=== PATIENT | female | born 1940 | race Caucasian/White ===

== ENCOUNTER 2017-11-03 11:41 | Outpatient (CLI) | payer MEDICARE, SELFPAY ==
[2017-11-03 13:10] LABS: Cholesterol 186 mg/dL (50-200); HDL Cholesterol 70 mg/dL (40-60); LDL CHOLESTEROL 105 mg/dL (<100); Triglyceride 79 mg/dL (30-150)
== END 2017-11-03 12:01 ==
PROVIDERS: PCP Family Medicine; Visit Provider Family Medicine
DX: E11.9 Type 2 diabetes mellitus without complications (principal)
CPT/HCPCS: 36415; 80061; 83721

== ENCOUNTER → 2017-11-08 10:20 | Outpatient (BNVA) | payer MEDICARE, OTHER, SELFPAY | PROVIDERS: PCP Family Medicine; Visit Provider Psychiatry & Neurology Neurology | DX: G25.0 Essential tremor (principal) | CPT/HCPCS: 99213 ==

== ENCOUNTER 2018-05-17 10:52 | Outpatient (CLI) | payer MEDICARE, OTHER, SELFPAY ==
[2018-05-17 12:18] LABS: Hemoglobin A1C 9.2 % (4.5-6.2)
== END 2018-05-17 11:12 ==
PROVIDERS: PCP Family Medicine; Visit Provider Family Medicine
DX: E11.9 Type 2 diabetes mellitus without complications (principal)
CPT/HCPCS: 36415; 83036

== ENCOUNTER 2018-09-16 15:43 | Outpatient (CLI) | payer MEDICARE, OTHER, SELFPAY ==
[2018-09-16 20:37] LABS: Hemoglobin A1C 7.4 % (4.5-6.2)
== END 2018-09-16 16:03 ==
PROVIDERS: PCP Family Medicine; Visit Provider Family Medicine
DX: E11.9 Type 2 diabetes mellitus without complications (principal)
CPT/HCPCS: 36415; 83036

== ENCOUNTER → 2018-11-09 08:34 | Outpatient (BNVA) | payer MEDICARE, OTHER, SELFPAY | PROVIDERS: PCP Family Medicine; Visit Provider Psychiatry & Neurology Neurology | DX: G25.0 Essential tremor (principal); R20.0 Anesthesia of skin; E11.40 Type 2 diabetes mellitus with diabetic neuropathy, unspecified; Z79.84 Long term (current) use of oral hypoglycemic drugs; I10 Essential (primary) hypertension | CPT/HCPCS: 99214 ==

== ENCOUNTER 2018-11-21 01:07 | Outpatient (CLI) | payer MEDICARE, SELFPAY ==
[2018-11-21 12:29] LABS: Hemoglobin A1C 7.8 % (4.5-6.2)
== END 2018-11-21 01:27 ==
PROVIDERS: PCP Family Medicine; Visit Provider Family Medicine
DX: E11.9 Type 2 diabetes mellitus without complications (principal)
CPT/HCPCS: 36415; 83036

== ENCOUNTER 2019-03-27 11:56 | Outpatient (CLI) | payer MEDICARE, OTHER, SELFPAY ==
[2019-03-27 13:35] LABS: ALT 22 U/L (14-59); AST 12 U/L (15-37); Albumin 3.5 g/dL (3.4-5.0); Alkaline Phosphatase 85 U/L (46-116); BUN 24 mg/dL (7-18); Bilirubin, Total 0.6 mg/dL (0.2-1.0); CREATININE 0.88 mg/dL (0.55-1.02); Calcium 8.7 mg/dL (8.5-10.1); Calculated LDL 99 mg/dL (<100); Chloride 103 mmol/L (98-107); Cholesterol 188 mg/dL (<200); Glucose 170 mg/dL (74-106); HDL Cholesterol 65 mg/dL (40-60); Potassium 4.1 mmol/L (3.5-5.1); Sodium 141 mmol/L (136-145); Total Protein 6.7 g/dL (6.4-8.2); Triglyceride 121 mg/dL (<150)
[2019-03-27 13:40] LABS: Anion Gap 8.5 mmol/L (3-11); CO2 29.5 mmol/L (21.0-32.0)
[2019-03-27 15:35] LABS: Hemoglobin A1C 8.1 % (3.8-5.6)
== END 2019-03-27 12:16 ==
PROVIDERS: PCP Family Medicine; Visit Provider Family Medicine
DX: E11.9 Type 2 diabetes mellitus without complications (principal); E78.00 Pure hypercholesterolemia, unspecified
CPT/HCPCS: 36415; 80053; 80061; 83036

== ENCOUNTER → 2019-11-08 08:31 | Outpatient (BNVA) | payer MEDICARE, OTHER, SELFPAY | PROVIDERS: PCP Family Medicine; Visit Provider Psychiatry & Neurology Neurology | DX: G25.0 Essential tremor (principal); I10 Essential (primary) hypertension; E11.40 Type 2 diabetes mellitus with diabetic neuropathy, unspecified; R26.89 Other abnormalities of gait and mobility; R27.8 Other lack of coordination | CPT/HCPCS: 99214 ==

== ENCOUNTER 2019-11-23 04:50 | Outpatient (CLI) | payer MEDICARE, OTHER, SELFPAY ==
[2019-11-23 12:45] LABS: Hemoglobin A1C 8.7 % (<5.7)
[2019-11-23 12:48] LABS: ALT 29 U/L (14-59); AST 18 U/L (15-37); Albumin 3.6 g/dL (3.4-5.0); Alkaline Phosphatase 71 U/L (46-116); Anion Gap 6.1 mmol/L (3-11); BUN 19 mg/dL (7-18); Bilirubin, Total 0.8 mg/dL (0.2-1.0); CO2 29.9 mmol/L (21.0-32.0); CREATININE 0.94 mg/dL (0.55-1.02); Calcium 8.8 mg/dL (8.5-10.1); Chloride 103 mmol/L (98-107); Estimated GFR 57.44 (mL/min/1.73m2); Glucose 192 mg/dL (74-106); Potassium 4.2 mmol/L (3.5-5.1); Sodium 139 mmol/L (136-145); Total Protein 6.8 g/dL (6.4-8.2)
[2019-11-23 13:27] LABS: COMMENT (LAB VIEW ONLY) 152.14 mg/dL; Microalb ug/mg Crea 4.5 ug/mg Cr
== END 2019-11-23 05:10 ==
PROVIDERS: PCP Family Medicine; Visit Provider Family Medicine
DX: E11.40 Type 2 diabetes mellitus with diabetic neuropathy, unspecified (principal); I10 Essential (primary) hypertension
CPT/HCPCS: 36415; 80053; 82043; 82570; 83036

== ENCOUNTER 2020-03-21 04:40 | Outpatient (CLI) | payer MEDICARE, OTHER, SELFPAY ==
[2020-03-21 13:39] LABS: Hemoglobin A1C 10.4 % (<5.7)
[2020-03-21 13:41] LABS: ALT 31 U/L (14-59); AST 16 U/L (15-37); Albumin 3.6 g/dL (3.4-5.0); Alkaline Phosphatase 76 U/L (46-116); Anion Gap 7.2 mmol/L (3-11); BUN 25 mg/dL (7-18); CO2 29.8 mmol/L (21.0-32.0); CREATININE 1.05 mg/dL (0.55-1.02); Calcium 8.6 mg/dL (8.5-10.1); Calculated LDL 75 mg/dL (<100); Chloride 103 mmol/L (98-107); Cholesterol 166 mg/dL (<200); Estimated GFR 50.56 (mL/min/1.73m2); Glucose 235 mg/dL (74-106); HDL Cholesterol 72 mg/dL (40-60); Potassium 4.3 mmol/L (3.5-5.1); Sodium 140 mmol/L (136-145); Total Protein 6.9 g/dL (6.4-8.2); Triglyceride 96 mg/dL (<150)
== END 2020-03-21 05:00 ==
PROVIDERS: PCP Family Medicine; Visit Provider Family Medicine
DX: E11.9 Type 2 diabetes mellitus without complications (principal); I10 Essential (primary) hypertension
CPT/HCPCS: 36415; 80053; 80061; 83036

== ENCOUNTER → 2020-05-08 09:19 | Outpatient (BNVA) | payer MEDICARE, OTHER, SELFPAY | PROVIDERS: PCP Family Medicine; Referring Provider Family Medicine; Visit Provider Psychiatry & Neurology Neurology | DX: G25.0 Essential tremor (principal); E11.40 Type 2 diabetes mellitus with diabetic neuropathy, unspecified; R26.89 Other abnormalities of gait and mobility | CPT/HCPCS: 99214 ==

== ENCOUNTER 2020-05-14 03:06 | Outpatient (CLI) | payer MEDICARE, OTHER, SELFPAY ==
--- NOTE | 2020-05-14 14:00 | NS.NUTBLAN_ITS ---
Heide was referred for Medical Nutrition Therapy for poorly controlled DM. Most recent A1c: 10.4%(03/21/20) indicating average blood sugars of 240 mg/dl putting her at risk for complications associated with DM2. Weight has been stable and wnl. DM meds include sitagliptin, glipizide and empagliflozin. Does not report any negative side effects from GLP1 inhibitors. Adherent to medication regime and blood sugar monitoring. Blood sugar log indicates fasting sugars > 140 mg/dl most day with post prandial levels of 200-300 mg/dl. Heide wants to avoid insulin. Diet recall indicates mostly well balanced home made meals but high intake of fruit, milk, breads, dried fruit and frozen fruit that are contributing poor glycemic control. Session today included carbohydrate counting and limiting carbohydrates intake to 100-120 g daily with emphasis on complex carbs, lean protein and non starchy vegetables. Placed a Deneen 2 continuous glucose monitor to better record glycemic variability over next 14 days. Heide to swipe CGM 4 times daily and to bring back to down load in 14 days. Follow up meeting scheduled for 05/27 at 2 pm.
== END 2020-05-14 03:07 | disposition home or self-care (01) ==
LOC: DS 03:06
PROVIDERS: PCP Family Medicine; Visit Provider Dietitian, Registered
DX: E11.9 Type 2 diabetes mellitus without complications (principal); Z79.84 Long term (current) use of oral hypoglycemic drugs; Z71.3 Dietary counseling and surveillance
CPT/HCPCS: 97802

== ENCOUNTER 2020-05-27 04:40 | Outpatient (CLI) | payer MEDICARE, OTHER, SELFPAY ==
--- NOTE | 2020-05-27 14:00 | NS.NUTBLAN_ITS ---
Heied returns for medical nutrition therapy for diabetes education and to down load her continuous glucose monitor. New sensor attached today as well. Unfortunately, CGM not covered by medicare as does not use insulin. No changes in meds, continues on sitagliptin, glipizide and empagliflozin. CGM down load indicates in target range (70-180 mg/dl) 90% of time, with hypoglycemic events frequent- at 8% of time. High blood sugars (>180 mg/dl) at less than 2% of time. Heide reports CGM has helped her understand how different foods affect her blood sugars. She also likes the alarms, as she is able to eat something when low alert beeps and able to avoid foods that cause hyperglycemia. Today's session focused on how to reduce hypoglycemic events by increasing carbohydrate intake at meals. Heide has been following 100-120 g carbs per day- in view of hypoglycemic events, recommend increasing carb intake to 150-200 mg/dl. Dangers of hypoglycemia reviewed and provided information. Heide has follow up appt with Dr. Chi 06/26/20. We placed another sensor today for another 14 day analysis. Goal is to reduce or avoid hypoglycemic events. Follow up appt. scheduled for 06/10/20 at 2 pm.
== END 2020-05-27 04:41 | disposition home or self-care (01) ==
LOC: DS 04:40
PROVIDERS: PCP Family Medicine; Visit Provider Dietitian, Registered
DX: Z11.9 Encounter for screening for infectious and parasitic diseases, unspecified (principal); Z79.84 Long term (current) use of oral hypoglycemic drugs; Z71.3 Dietary counseling and surveillance
CPT/HCPCS: 97803

== ENCOUNTER 2020-06-10 05:57 | Outpatient (CLI) | payer MEDICARE, OTHER, SELFPAY ==
--- NOTE | 2020-06-10 14:00 | NS.NUTBLAN_ITS ---
Heide returns for medical nutrition [facility] for continuation of diabetes self management education. She has worn her Deneen 2 continuous glucose monitor for last 14 days (may 28-june 10). The AGP report indicates average glucose is 109 mg/dl, range 68-185 mg/dl. Hypoglycemic events minimal at 1% of the time and no very low (<54 mg/dl) events recorded. No nocturnal hypoglycemia noted. Hyperglycemic episodes: 1% (BG>181-250 mg/dl). In target range 98% of the time (70-180mg/dl). DM meds include: sitagliptin, jardiance and glipizide Overall, Heide has made many positive diet and life style changes for improved glycemic control. A1C in March of this year was 10%, suspect great reduction in this number at next A1C check. At this time, Dm well controlled and she can avoid the use of insulin. Unfortunately, since Heide does not take insulin, medicare will not pay for Libre2 sensors. She has a reader and can purchase sensors at cost ($44 per month for 2 sensors). No follow up meeting scheduled at this time. Heide to contact advertising copywriter if needs additional SMBG.
== END 2020-06-10 05:58 | disposition home or self-care (01) ==
LOC: DS 05:57
PROVIDERS: PCP Family Medicine; Visit Provider Dietitian, Registered
DX: E11.9 Type 2 diabetes mellitus without complications (principal); Z79.84 Long term (current) use of oral hypoglycemic drugs; Z71.3 Dietary counseling and surveillance
CPT/HCPCS: 97803

== ENCOUNTER → 2020-11-06 08:48 | Outpatient (BNVA) | payer MEDICARE, OTHER, SELFPAY | PROVIDERS: PCP Family Medicine; Referring Provider Family Medicine; Visit Provider Psychiatry & Neurology Neurology | DX: R26.89 Other abnormalities of gait and mobility (principal); E11.40 Type 2 diabetes mellitus with diabetic neuropathy, unspecified; G25.0 Essential tremor | CPT/HCPCS: 99213 ==

== ENCOUNTER → 2021-05-07 11:12 | Outpatient (BNVA) | payer MEDICARE, SELFPAY | PROVIDERS: PCP Family Medicine; Referring Provider Family Medicine; Visit Provider Psychiatry & Neurology Neurology | DX: G25.0 Essential tremor (principal); R26.9 Unspecified abnormalities of gait and mobility; E11.40 Type 2 diabetes mellitus with diabetic neuropathy, unspecified | CPT/HCPCS: 99213 ==

== ENCOUNTER 2021-05-29 17:33 | Outpatient (REF) | payer MEDICARE, SELFPAY | END 2021-05-29 17:34 | disposition home or self-care (01) | LOC: LBN 17:33 | PROVIDERS: PCP Family Medicine; Visit Provider Family Medicine | DX: N76.0 Acute vaginitis (principal) | CPT/HCPCS: 87480; 87510; 87660 ==

== ENCOUNTER 2021-08-25 03:38 | Outpatient (CLI) | payer MEDICARE, SELFPAY ==
[2021-08-25 13:02] LABS: COMMENT (LAB VIEW ONLY) 135.77 mg/dL; Microalb ug/mg Crea 5.1 ug/mg Cr
[2021-08-25 13:19] LABS: ALT 13 U/L (14-59); AST 13 U/L (15-37); Albumin 3.1 g/dL (3.4-5.0); Alkaline Phosphatase 72 U/L (46-116); Anion Gap 12.5 mmol/L (3-11); BUN 24 mg/dL (7-18); Bilirubin, Total 0.8 mg/dL (0.2-1.0); CO2 28.5 mmol/L (21.0-32.0); CREATININE 0.9 mg/dL (0.55-1.02); Calcium 9.2 mg/dL (8.5-10.1); Chloride 99 mmol/L (98-107); Glucose 196 mg/dL (74-106); Potassium 4.2 mmol/L (3.5-5.1); Sodium 140 mmol/L (136-145); Total Protein 7.1 g/dL (6.4-8.2)
== END 2021-08-25 03:39 | disposition home or self-care (01) ==
LOC: LOS 03:38
PROVIDERS: PCP Family Medicine; Visit Provider Family Medicine
DX: I10 Essential (primary) hypertension (principal); E11.9 Type 2 diabetes mellitus without complications
CPT/HCPCS: 36415; 80053; 82043; 82570

== ENCOUNTER → 2021-08-26 11:58 | Outpatient (CLI) | payer MEDICARE, SELFPAY ==
--- NOTE | 2021-08-26 09:15 | DI.RAD_ITS ---
Exam(s) XR SHOULDER RT COMPLETE 2+V EXAM: XR SHOULDER RT COMPLETE 2+V CLINICAL HISTORY: s/p injury 3 months ago, persistent pain--[id number]. TECHNIQUE: 2D digital imaging was performed of the right shoulder. Five images were obtained. AP, Grashey, Y-view and axillary views were obtained. COMPARISON: No exams were available for comparison FINDINGS: BONES: No acute fracture is present. No bony destructive lesion is seen. JOINTS: No dislocation present. Mild degenerative changes are seen at the acromioclavicular joint. SOFT TISSUE: There is a tiny calcification adjacent to the greater tuberosity which may represent ly cific tendinitis. IMPRESSION: Degenerative changes of the right shoulder as described. DATA REPOSITORY: RADIATION DOSE DELIVERED:
== END ==
PROVIDERS: PCP Family Medicine; Visit Provider Family Medicine
DX: M25.511 Pain in right shoulder (principal); M25.811 Other specified joint disorders, right shoulder
CPT/HCPCS: 73030

== ENCOUNTER 2021-09-23 09:45 | Outpatient (CLI) | payer MEDICARE, SELFPAY ==
--- NOTE | 2021-09-23 09:00 | DI.RAD_ITS ---
Exam(s) XR SHOULDER LT COMPLETE 2+V EXAM: XR SHOULDER LT COMPLETE 2+V CLINICAL HISTORY: left shoulder pain. TECHNIQUE: 2D digital imaging was performed of the left shoulder. Two images were obtained. AP and axillary views were obtained. COMPARISON: No priors for comparison. FINDINGS: BONES: No acute fracture is present. No bony destructive lesion is seen. JOINTS: No dislocation present. Mild degenerative changes of the AC joint. SOFT TISSUE: Normal. IMPRESSION: No acute abnormality. DATA REPOSITORY: RADIATION DOSE DELIVERED:
== END 2021-09-23 09:46 | disposition home or self-care (01) ==
LOC: DIORS 09:45
PROVIDERS: PCP Family Medicine; Referring Provider Family Medicine; Visit Provider Student in an Organized Health Care Education/Training Program
DX: M19.011 Primary osteoarthritis, right shoulder (principal); M19.012 Primary osteoarthritis, left shoulder; M75.31 Calcific tendinitis of right shoulder
CPT/HCPCS: 20610; 99204; 99214; 73030; J1030

== ENCOUNTER → 2022-01-15 14:01 | Outpatient (BNVA) | payer MEDICARE, SELFPAY | PROVIDERS: PCP Family Medicine; Referring Provider Family Medicine; Visit Provider Psychiatry & Neurology Neurology | DX: E11.42 Type 2 diabetes mellitus with diabetic polyneuropathy (principal); G25.0 Essential tremor | CPT/HCPCS: 99214 ==

== ENCOUNTER 2022-07-23 03:24 | Outpatient (CLI) | payer MEDICARE, SELFPAY ==
--- NOTE | 2022-07-23 13:00 | NS.NUTBLAN_ITS ---
Heide was referred to diabetes self management education 5'1 143 lbs BMI: 26 DM meds: 10 mg glipizide BID, 100 mg Januvia A1C (05/05/22): 8.5% Diet Recall: B: salvadorean yogurt, 1 cup fruit, Lunch: open faced sandwich, supper: lentil soup. Snacks: dark chocolate, cookies, milk Heide is aware that her snacks contain a lot of sugar but is unwilling to reduce her favorite snacks. Session today focused on how best to count carbs and to pair them with meals that contain lean protein and healthy fats. Reviewed serving sizes and labEL reading. Overall, her diet is well balanced and does not include liquid sugar or processed foods. A1C goal for her age/comorbidities is <8.5%. Recommend keeping her A1C below 8.5% by decreasing glycemic impact at all meals and snacks. Reviewed different strategies she may be able to use. No follow up planned at this time.
== END 2022-07-23 03:25 | disposition home or self-care (01) ==
LOC: DS 03:24
PROVIDERS: PCP Family Medicine; Visit Provider Dietitian, Registered
DX: E11.9 Type 2 diabetes mellitus without complications (principal); Z79.84 Long term (current) use of oral hypoglycemic drugs; Z71.3 Dietary counseling and surveillance
CPT/HCPCS: 97802

== ENCOUNTER 2022-09-29 03:36 | Outpatient (CLI) | payer MEDICARE, SELFPAY ==
[2022-09-29 12:34] LABS: Hemoglobin A1C 12.5 % (<5.7)
[2022-09-29 12:49] LABS: ALT 23 U/L (14-59); AST 18 U/L (15-37); Albumin 3.6 g/dL (3.4-5.0); Alkaline Phosphatase 82 U/L (46-116); Anion Gap 6.4 mmol/L (3-11); BUN 15 mg/dL (7-18); CO2 31.6 mmol/L (21.0-32.0); CREATININE 0.9 mg/dL (0.55-1.02); Calcium 8.8 mg/dL (8.5-10.1); Calculated LDL 59 mg/dL (<100); Chloride 102 mmol/L (98-107); Cholesterol 148 mg/dL (<200); Estimated GFR 63.83 (mL/min/1.73m2); Glucose 327 mg/dL (74-106); HDL Cholesterol 79 mg/dL (40-60); Potassium 4.1 mmol/L (3.5-5.1); Sodium 140 mmol/L (136-145); TSH (W/Ref FT4) 5.28 uIU/mL (0.36-3.74); Total Protein 7.3 g/dL (6.4-8.2); Triglyceride 54 mg/dL (<150)
[2022-09-29 12:53] LABS: COMMENT (LAB VIEW ONLY) 158.07 mg/dL; Microalb ug/mg Crea 9.8 ug/mg Cr
== END 2022-09-29 03:37 | disposition home or self-care (01) ==
LOC: LOS 03:37
PROVIDERS: PCP Family Medicine; Visit Provider Family Medicine
DX: E11.40 Type 2 diabetes mellitus with diabetic neuropathy, unspecified (principal); E78.5 Hyperlipidemia, unspecified; I10 Essential (primary) hypertension
CPT/HCPCS: 36415; 80053; 80061; 82043; 82570; 83036; 84439; 84443

== ENCOUNTER → 2023-01-04 11:10 | Outpatient (BNVA) | payer MEDICARE, SELFPAY | PROVIDERS: PCP Family Medicine; Referring Provider Family Medicine; Visit Provider Psychiatry & Neurology Neurology | DX: G25.0 Essential tremor (principal); E11.40 Type 2 diabetes mellitus with diabetic neuropathy, unspecified; I10 Essential (primary) hypertension | CPT/HCPCS: 99214 ==

== ENCOUNTER 2023-04-06 04:35 | Outpatient (CLI) | payer MEDICARE, SELFPAY ==
[2023-04-06 12:43] LABS: Hemoglobin A1C 8.4 % (<5.7)
== END 2023-04-06 04:36 | disposition home or self-care (01) ==
LOC: LOS 04:35
PROVIDERS: PCP Family Medicine; Visit Provider Family Medicine
DX: E11.9 Type 2 diabetes mellitus without complications (principal)
CPT/HCPCS: 36415; 83036

== ENCOUNTER 2023-06-29 14:37 | Outpatient (REF) | payer MEDICARE, SELFPAY ==
[2023-06-29 12:56] LABS: COMMENT (LAB VIEW ONLY) 39.74 mg/dL; Microalb ug/mg Crea 7.8 ug/mg Cr
== END 2023-06-29 14:38 | disposition home or self-care (01) ==
LOC: LBN 14:37
PROVIDERS: PCP Family Medicine; Visit Provider Family Medicine
DX: E11.9 Type 2 diabetes mellitus without complications (principal)
CPT/HCPCS: 82043; 82570

== ENCOUNTER 2023-11-10 03:38 | Outpatient (CLI) | payer MEDICARE, SELFPAY ==
[2023-11-10 12:39] LABS: ALT 29 U/L (14-59); AST 11 U/L (15-37); Albumin 3.4 g/dL (3.4-5.0); Alkaline Phosphatase 73 U/L (46-116); Anion Gap 5.2 mmol/L (3-11); BUN 18 mg/dL (7-18); Bilirubin, Total 0.89 mg/dL (0.2-1.0); CO2 31.8 mmol/L (21.0-32.0); CREATININE 0.8 mg/dL (0.55-1.02); Calcium 8.5 mg/dL (8.5-10.1); Calculated LDL 58 mg/dL (<100); Chloride 104 mmol/L (98-107); Cholesterol 149 mg/dL (<200); Estimated GFR 73.06 (mL/min/1.73m2); Glucose 156 mg/dL (74-106); HDL Cholesterol 83 mg/dL (40-60); Potassium 3.4 mmol/L (3.5-5.1); Sodium 141 mmol/L (136-145); TSH (W/Ref FT4) 7.73 uIU/mL (0.36-3.74); Total Protein 6.9 g/dL (6.4-8.2); Triglyceride 42 mg/dL (<150)
[2023-11-10 13:24] LABS: FREE T4 0.77 ng/dL (0.76-1.46)
== END 2023-11-10 03:39 | disposition home or self-care (01) ==
LOC: LOS 03:38
PROVIDERS: PCP Family Medicine; Visit Provider Family Medicine
DX: I10 Essential (primary) hypertension (principal); E03.9 Hypothyroidism, unspecified; E11.9 Type 2 diabetes mellitus without complications
CPT/HCPCS: 36415; 80053; 80061; 84439; 84443

== ENCOUNTER → 2024-01-04 13:25 | Outpatient (BNVA) | payer MEDICARE, SELFPAY | PROVIDERS: PCP Family Medicine; Visit Provider Psychiatry & Neurology Neurology | DX: G25.0 Essential tremor (principal); E11.40 Type 2 diabetes mellitus with diabetic neuropathy, unspecified | CPT/HCPCS: 99214 ==

== ENCOUNTER 2024-03-31 15:52 | Outpatient (CLI) | payer MEDICARE, SELFPAY ==
[2024-03-31 16:42] LABS: Hemoglobin A1C 7.5 % (<5.7)
[2024-03-31 16:58] LABS: ALT 17 U/L (14-59); AST 11 U/L (15-37); Albumin 3.5 g/dL (3.4-5.0); Alkaline Phosphatase 86 U/L (46-116); Anion Gap 5.1 mmol/L (3-11); BUN 22 mg/dL (7-18); Bilirubin, Total 0.63 mg/dL (0.2-1.0); CO2 31.9 mmol/L (21.0-32.0); CREATININE 1.1 mg/dL (0.55-1.02); Calcium 8.7 mg/dL (8.5-10.1); Calculated LDL 42 mg/dL (<100); Chloride 105 mmol/L (98-107); Cholesterol 150 mg/dL (<200); Estimated GFR 49.55 (mL/min/1.73m2); Glucose 225 mg/dL (74-106); HDL Cholesterol 71 mg/dL (40-60); Potassium 4.1 mmol/L (3.5-5.1); Sodium 142 mmol/L (136-145); TSH (W/Ref FT4) 3.94 uIU/mL (0.36-3.74); Total Protein 7.1 g/dL (6.4-8.2); Triglyceride 188 mg/dL (<150)
[2024-03-31 17:03] LABS: COMMENT (LAB VIEW ONLY) 103.71 mg/dL; Microalb ug/mg Crea 6.6 ug/mg Cr
[2024-03-31 17:30] LABS: FREE T4 1.03 ng/dL (0.76-1.46)
== END 2024-03-31 15:53 | disposition home or self-care (01) ==
LOC: LBO 04-18 15:52
PROVIDERS: PCP Family Medicine; Visit Provider Family Medicine
DX: E11.9 Type 2 diabetes mellitus without complications (principal); I10 Essential (primary) hypertension; E03.9 Hypothyroidism, unspecified
CPT/HCPCS: 36415; 80053; 80061; 82043; 82570; 83036; 84439; 84443

== ENCOUNTER 2024-08-18 01:07 | Outpatient (CLI) | payer MEDICARE, SELFPAY ==
[2024-08-18 12:56] LABS: ALT 27 U/L (14-59); AST 15 U/L (15-37); Albumin 3.5 g/dL (3.4-5.0); Alkaline Phosphatase 78 U/L (46-116); Anion Gap 4.7 mmol/L (3-11); BUN 24 mg/dL (7-18); Bilirubin, Total 0.9 mg/dL (0.2-1.0); CO2 32.3 mmol/L (21.0-32.0); CREATININE 1.1 mg/dL (0.55-1.02); Calcium 8.7 mg/dL (8.5-10.1); Calculated LDL 66 mg/dL (<100); Chloride 102 mmol/L (98-107); Cholesterol 144 mg/dL (<200); Estimated GFR 49.55 (mL/min/1.73m2); Glucose 205 mg/dL (74-106); HDL Cholesterol 68 mg/dL (>or=50); Sodium 139 mmol/L (136-145); TSH (W/Ref FT4) 3.31 uIU/mL (0.36-3.74); Triglyceride 52 mg/dL (<150)
[2024-08-18 15:30] LABS: Hemoglobin A1C 8.7 % (<5.7)
== END 2024-08-18 01:08 | disposition home or self-care (01) ==
LOC: LOS 01:07
PROVIDERS: PCP Family Medicine; Visit Provider Family Medicine
DX: E11.9 Type 2 diabetes mellitus without complications (principal); E03.9 Hypothyroidism, unspecified; I10 Essential (primary) hypertension
CPT/HCPCS: 36415; 80053; 80061; 83036; 84443

== ENCOUNTER 2024-09-07 10:09 | Outpatient (CLI) | payer MEDICARE, SELFPAY ==
[2024-09-07 12:37] LABS: HCT 38.7 % (36.0-46.0); HGB 12.4 g/dL (11.2-15.7); MCH 28.5 pg (27.0-33.0); MCHC 32.0 % (32.0-36.0); MCV 89 fL (80-95); MPV 10.4 fL (8.0-11.0); Platelet Count 132 10^3/uL (130-400); RBC 4.35 10^6/uL (3.93-5.22); RDW 12.6 % (11.7-14.6); RDW-SD 41.4 fL; WBC 5.77 10^3/uL (4.4-10.8)
[2024-09-07 12:51] LABS: ALT 23 U/L (14-59); AST 15 U/L (15-37); Albumin 3.5 g/dL (3.4-5.0); Alkaline Phosphatase 75 U/L (46-116); Anion Gap 8.3 mmol/L (3-11); BUN 17 mg/dL (7-18); Bilirubin, Total 1.0 mg/dL (0.2-1.0); CO2 29.7 mmol/L (21.0-32.0); Calcium 8.8 mg/dL (8.5-10.1); Chloride 102 mmol/L (98-107); Estimated GFR 72.61 (mL/min/1.73m2); Glucose 231 mg/dL (74-106); Potassium 3.7 mmol/L (3.5-5.1); Sodium 140 mmol/L (136-145); Total Protein 7.1 g/dL (6.4-8.2)
== END 2024-09-07 10:10 | disposition home or self-care (01) ==
LOC: LOS 10:09
PROVIDERS: PCP Family Medicine; Visit Provider Family Medicine
DX: I10 Essential (primary) hypertension (principal); D64.9 Anemia, unspecified
CPT/HCPCS: 36415; 80053; 85027

== ENCOUNTER 2024-10-25 02:25 | Outpatient (CLI) | payer MEDICARE, SELFPAY ==
[2024-10-25 12:42] LABS: Hemoglobin A1C 8.7 % (<5.7)
[2024-10-25 12:48] LABS: Iron 78 ug/dL (50-170); Total Iron Binding Capacity 279 ug/dL (250-450); Transferrin Sat 28 % (15-50)
[2024-10-25 12:50] LABS: TSH (W/Ref FT4) 5.35 uIU/mL (0.36-3.74)
== END 2024-10-25 02:26 | disposition home or self-care (01) ==
LOC: LOS 02:26
PROVIDERS: PCP Family Medicine; Visit Provider Family Medicine
DX: E11.9 Type 2 diabetes mellitus without complications (principal); D64.9 Anemia, unspecified; E03.9 Hypothyroidism, unspecified
CPT/HCPCS: 36415; 83036; 83540; 83550; 84439; 84443

== ENCOUNTER → 2025-01-02 11:00 | Outpatient (BNVA) | payer MEDICARE, SELFPAY | PROVIDERS: PCP Family Medicine; Visit Provider Psychiatry & Neurology Neurology | DX: G25.0 Essential tremor (principal); E11.40 Type 2 diabetes mellitus with diabetic neuropathy, unspecified; E11.59 Type 2 diabetes mellitus with other circulatory complications; I10 Essential (primary) hypertension | CPT/HCPCS: 99213 ==